=== PATIENT | female | born 1945 | race Hispanic/Latino ===

== ENCOUNTER → 2017-12-25 | Outpatient (CLI) | payer MEDICARE, OTHER ==
[~2017-12-25] MED LIST: CALC600T12 PO; LEVO25TA54 PO; MAGN250T10 PO; MECL12.585 PO; METO-391 PO; OLME40TA8 PO; OMEG1CAP12 PO; OXYB5TAB10 PO; PANT40TA25 PO; SIMV10TA6 PO; ZINC50TA64 PO; [UNRECOGNIZED DRUG - OTHER] PO
== END | disposition home or self-care (01) ==
LOC: RAH 09:06
PROVIDERS: ATTEND Internal Medicine
DX: I10 Essential (primary) hypertension (principal); I34.0 Nonrheumatic mitral (valve) insufficiency; K21.9 Gastro-esophageal reflux disease without esophagitis; E78.5 Hyperlipidemia, unspecified; E03.9 Hypothyroidism, unspecified
CPT/HCPCS: 93306

== ENCOUNTER → 2020-06-15 | Outpatient (CLI) | payer MEDICARE, OTHER ==
[~2020-06-15] MED LIST changes: -CALC600T12 PO; +CALC600T15 PO; +MECL-226 PO; -MECL12.585 PO; -OXYB5TAB10 PO; +OXYB5TAB15 PO; -PANT40TA25 PO; +PANT40TA54 PO; -SIMV10TA6 PO; +SIMV10TA97 PO
== END | disposition home or self-care (01) ==
LOC: RAH 15:35
PROVIDERS: ATTEND Internal Medicine
DX: M47.812 Spondylosis without myelopathy or radiculopathy, cervical region (principal); M54.2 Cervicalgia; R07.81 Pleurodynia
CPT/HCPCS: 71100; 72040

== ENCOUNTER → 2022-04-11 | Outpatient (CLI) | payer MEDICARE ==
[~2022-04-11] MED LIST changes: +CALC-1125 PO; -CALC600T15 PO; +OLME40TA70 PO; -OLME40TA8 PO
== END | disposition home or self-care (01) ==
LOC: RAH 12:13
PROVIDERS: ATTEND Internal Medicine
DX: S60.222A Contusion of left hand, initial encounter (principal); M25.841 Other specified joint disorders, right hand; M25.842 Other specified joint disorders, left hand; M79.641 Pain in right hand; M47.816 Spondylosis without myelopathy or radiculopathy, lumbar region; W19.XXXA Unspecified fall, initial encounter; Y93.89 Activity, other specified; Y92.89 Other specified places as the place of occurrence of the external cause; Y99.8 Other external cause status
CPT/HCPCS: 72100

== ENCOUNTER → 2022-07-26 | Outpatient (CLI) | payer MEDICARE | END | disposition home or self-care (01) | LOC: RAH 13:51 | DX: G45.9 Transient cerebral ischemic attack, unspecified (principal); R20.0 Anesthesia of skin | CPT/HCPCS: 70450 ==